=== PATIENT | female | born 1970 | race African-American/Black ===

== ENCOUNTER 2022-01-20 22:06 | Emergency (ER) | payer BC, OTHER ==
[~2022-01-20] VITALS: Ht 160 cm; Wt 77.1 kg
--- NOTE | 2022-01-21 00:20 | NUR ---
PT PLACED IN ROOM 2B.
--- NOTE | 2022-01-21 00:22 | NUR ---
Patient c/o vaginal bleeding. LMP 01/17/22. Noticed large amount of blood and clots since 3pm.
--- NOTE | 2022-01-21 00:23 | NUR ---
Seen by TRINY GILBERT for MSE.
[2022-01-21] MEDS: METHYLERGONOVINE MALEATE 0.2 MG/ML AMP IM ONE (01:05)
[2022-01-21] MEDS ORDERED: METHYLERGONOVINE MALEATE 0.2 MG/ML AMP ONE (01:11)
[2022-01-21 01:23] LABS: CREATININE 0.9 mg/dL (0.6-1.3); POTASSIUM 3.9 mmol/L (3.5-5.1)
[2022-01-21 01:25] LABS: HEMATOCRIT 37.3 % (31.2-41.9); MEAN CORPUSCULAR HEMOGLOBIN 27.3 uug (24.7-32.8); MEAN CORPUSCULAR VOLUME 82.5 fL (75.5-95.3); PLATELET COUNT (AUTO) 217 K/uL (179-408)
[2022-01-21] MEDS ORDERED: [UNRECOGNIZED DRUG - OTHER] (01:42)
[2022-01-21] MEDS ORDERED: methergine (01:43)
[2022-01-21] MEDS ORDERED: ONDA4TAB5 PO (01:56)
[2022-01-21] MEDS: ONDANSETRON ODT 4 MG TAB.RAPDIS SL ONE (02:10)
--- NOTE | 2022-01-21 02:11 | NUR ---
Patient discharged to home via private vehicle accompanied by in stable condition. Ambulatory with steady gait. A/Ox4. Written and verbal after care instructions given. Patient verbalizes understanding of instructions. Stressed follow up or return to ER for worsening s/s.
[2022-01-21 02:15] VITALS: BP 120/90
[2022-01-21] MEDS ORDERED: ONDANSETRON ODT 4 MG TAB.RAPDIS ONE (02:17)
== END 2022-01-21 02:10 | disposition home or self-care (01) ==
LOC: ER 22:14
DX: N93.9 Abnormal uterine and vaginal bleeding, unspecified (principal); R00.0 Tachycardia, unspecified
CPT/HCPCS: 36415; 80048; 82728; 85025; 96372; 99283; J2210; Q0162